=== PATIENT | male | born 1990 | race Caucasian/White ===

== ENCOUNTER 2025-04-03 09:51 | Emergency (ER) | payer OTHER, MEDICAID, SELFPAY ==
[2025-04-03 09:56] VITALS: BP 139/83; PULSE 60; RESP 18; TEMP 36.4; O2SAT 97
--- NOTE | 2025-04-03 10:04 | PC.NURSE ---
Patient eating and drinking in the waiting room.
--- OUTSIDE RECORDS SUMMARY | 2025-04-03 10:43 | XMS_ITS | Continuity of Care Document ---
Author Name Matt Pandey Address [address] [place], [place] [id number] [place] [address] Organization Unknown Address [address] [place], [place] [id number] [place] [address] Medications No known medications Problems No known problems
--- OUTSIDE RECORDS SUMMARY | 2025-04-03 10:43 | XMS_ITS | Continuity of Care Document ---
Author Name Matt Pandey Address [address] [facility] [address] [place] [address] Organization Unknown Address [address] [place] [address] [address] [place] [address] Medications No known medications Problems No known problems
--- OUTSIDE RECORDS SUMMARY | 2025-04-03 10:43 | XMS_ITS | Encounter Summary ---
Author Organization [facility] Healthcare Address [address] [place] [address] Care Team Providers Care Drug Safety Specialist Name Role Phone No, Physician Primary Care Provider [phone] Encounter Details Date Type Department Care Team ([facility] st Contact Info) Description 04/03/2025 Results Follow-Up [facility] Emergency Department 1 [place] [address] Brian Manrique MD [address] [place] [address] Aerobic culture and gram stain Abscess Arm, right Social History Tobacco Use Types Packs/Day Years Used Date Smoking Tobacco: Every Day Cigarettes 0.5 5 Smokeless Tobacco: Never Alcohol Use Standard Drinks/Week Comments Yes 0 (1 standard drink = 0.6 oz pur e alcohol) Personal Safety Answer Date Recorded Have you ever been in or are you currently in a harmful physical or emotional relationship or is someone making you feel afraid or unsafe? 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
--- OUTSIDE RECORDS SUMMARY | 2025-04-03 10:43 | XMS_ITS | Clinical Summary ---
Author Organization [facility] Address [address] [place] [address] Care Team Providers Care Bridge Operator Name Role Phone No, Physician Primary Care Provider [phone] Allergies Active Allergy Reactions Criticality Noted Date Comments Penicillins Medications levETIRAcetam (KEPPRA) 500 mg tablet Take 1 tablet (500 mg total) by mouth 2 (two) times a day. 60 tablet 07/21/19 18 Active EPINEPHrine (EpiPen) 0.3 mg/0.3 mL auto-injection syringeIndicat ions:Anaphylax is Inject 0.3 mL (0.3 mg total) into the muscle as instructed as needed for anaphylaxis 1 each 02/14/20 22 Active mupirocin (BACTROBAN) 2 % ointment Apply topically 3 (three) times a day 22 g 05/16/20 22 Active meclizine (ANTIVERT) 25 mg tabletIndicati ons:Labyrinthi tis of both ears Take 1 tablet (25 mg total) by mouth 3 (three) times a day as needed for dizziness Collaborating physician Caden Mcnamara MD 30 tablet 07/28/19 24 Active methocarbamoL (ROBAXIN) 500 mg tablet Take 1 tablet (500 mg total) by mouth 2 (two) times a day 20 tablet 01/13/20 24 Active lidocaine (LIDODERM) 5 % Place 1 patch on the skin daily for 14 days Remove & discard patch within 12 hours or as directed by . 14 patch 01/13/20 24 Active HYDROcodone-ac etaminophen (NORCO) 5-325 mg per tabletIndicati ons:Pain Take 1 tablet by mouth every 6 (six) hours as needed for pain 10 tablet 10/26/20 25 Active sulfamethoxazo le-trimethopri m (BACTRIM) 800-160 mg per tablet Take 2 tablets (320 mg of trimethoprim total) by mouth 2 (two) times a day for 7 days 28 tablet 03/30/20 25 Active ketorolac (TORADOL) 10 mg tablet Take 1 tablet (10 mg total) by mouth every 6 (six) hours as needed for pain 20 tablet 03/30/20 25 Active naproxen (NAPROSYN) 500 mg tablet Take 1 tablet (500 mg total) by mouth 2 (two) times a day with meals 30 tablet 01/13/20 24 025 Discontin ued(Thera py completed ) HYDROcodone-ac etaminophen (NORCO) 5-325 mg per tabletIndicati ons:Pain Take 1 tablet by mouth every 8 (eight) hours as needed for pain for up to 20 doses 8 tablet 01/13/20 24 025 Discontin ued(Thera py completed ) Active Problems Problem Noted Date Diagnosed Date Labyrinthitis of both ears 07/28/2023 Dentalgia 07/28/2023 Dental caries 07/28/2023 Encounters Date Type Department Care Team Description 04/03/2025 Results Follow-Up [facility] Emergency Department [address] [place] [address] Brian Manrique MD Aerobic culture and gram stain Abscess Arm, right 03/30/2025 1:56 AM CDT - 03/30/2025 2:26 AM CDT Emergency [facility] Emergency Department [address] [place] [address] Alma Matta MD Abscess (Primary Dx); Traumatic bursitis; Folliculitis Discharge Disposition: Discharge to home or self care from Last 3 Months Immunizations Immunization Administration Dates Next Due Tdap 03/30/2025 Surgical History Surgery Date Site/Laterality Comments LEG SURGERY Medical History Medical History Date Comments Adhd Drug abuse Alcohol abuse Social History Tobacco Use Types Packs/Day Years Used Date Smoking Tobacco: Every Day Cigarettes 0.5 5 Smokeless Tobacco: Never Tobacco Cessation:Ready to Q uit: Not Asked; Counseling Given: Not Answered Alcohol Use Standard Drinks/Week Comments Yes 0 [...] on file 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 Gender Identity Not on file Sexual Orientation Not on file Obstetrics History Last Filed Vital Signs Vital Sign Reading Time Taken Comments Blood Pressure 137/88 03/30/2025 1:00 AM CDT Pulse 98 03/30/2025 1:00 AM CDT Temperature 37.1 C (98.8 F) 03/30/2025 1:00 AM CDT Respiratory Rate 18 03/30/2025 1:00 AM CDT Oxygen Saturation 99% 03/30/2025 1:00 AM CDT Inhaled Oxygen Concentration - - Weight 81.6 kg (180 lb) 03/30/2025 1:00 AM CDT Height 180.3 cm (5' 11) 06/25/2023 9:34 AM 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 Body Mass Index 25.1 06/25/2023 9:34 AM 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 Plan of Treatment Health Maintenance Due Date Last Done Comments Depression Screening 1988 Hepatitis C Screening 1988 Varicella Vaccines (1 of 2 - 13+ 2-dose series) 2001 Regular Well Visit/Exam 18-64 2006 Pneumococcal vaccine <65 (1 of 2 - PCV) 10/31/2007 HPV Vaccines (1 - 3-dose SCD M series) 10/31/2015 Influenza Vaccine (#1) 2025 DTaP/Tdap/Td Vaccine (7 - Td or Tdap) 03/30/2035 03/30/2025, 03/03/2023, 12/27/2020, Additional history exists Hepatitis B Screening Completed 09/20/2000 , 04/18/2000, 02/25/2000 Procedures Procedure Name Priority Date/Time Associated Diagnosis Comments NV INCISION & DRAINAGE ABSCESS COMPLICATED/MULTIPL E Routine 03/30/2025 2:29 AM CDT NV INCISION & DRAINAGE ABSCESS COMPLICATED/MULTIPL E Routine 03/30/2025 2:24 AM CDT AEROBIC CULTURE AND GRAM STAIN Routine 03/30/2025 2:17 AM CDT POCT GLUCOSE DEVICE Routine 03/30/2025 2 :05 AM CDT from Last 3 Months Results * NV INCISION & DRAINAGE ABSCESS COMPLICATED/MULTIPLE (03/30/2025 2:29 AM CDT) Narrative Alma Matta MD - 03/30/2025 2:29 AM CDT Alma Matta MD 03/30/2025 3:24 AM Incision and Drainage Date/Time: 03/30/2025 2:29 AM Performed by: Alma Matta MD Authorized by: Alma Matta MD RN Notified of Procedure: yes Informed consent: Risks, benefits, alternatives discussed and 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 Imaging: N/a Lab/Diag test results: Pertinent lab/diag tests reviewed and match to patient identifiers Supplies, devices and special equipment are available: yes Site/side marked: yes Immediately prior to the procedure a time out was called: a verbal verification by the procedure participants confirmed correct patient identity, correct site/side marked and visible (if applicable); agreement on procedure to be done; and correct patient positioning Type: Abscess Size: 4 cm Location: Lower extremity Lower extremity location: R leg Skin preparation: Betadine Anesthesia method: None Needle aspiration: no Techniques: pressure applied. Drainage: Purulent Drainage amount: Scant Wound treatment: Wound left open Packing materials: None Patient tolerance of procedure: Tolerated well, no immediate complications All guidewires, needles, sponges or other items are accounted for: yes Any special post procedure monitoring, testing or other considerations: n/a All specimens identified, labeled and matched to patient identification: n/a Responsible constitution party for transporting specimen(s) to lab determined: n/a Alma Matta MD IN CLINIC/BEDSIDE ORDERABLES Fin al Result * NV INCISION & DRAINAGE ABSCESS COMPLICATED/MULTIPLE (03/30/2025 2:24 AM CDT) Narrative Alma Matta MD - 03/30/2025 2:24 AM CDT Alma Matta MD 03/30/2025 3:24 AM Incision and Drainage Date/Time: 03/30/2025 2:24 AM Performed by: Alma Matta MD Authorized by: Alma Matta MD RN Notified of Procedure: yes Informed consent: Risks, benefits, alternatives discussed and 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 Imaging: N/a Lab/Diag test results: Pertinent lab/diag tests reviewed and match to patient identifiers Supplies, devices and special equipment are available: yes Site/side marked: yes Immediately prior to the procedure a time out was called: a verbal verification by the procedure participants confirmed correct patient identity, correct site/side marked and visible (if applicable); agreement on procedure to be done; and correct patient positioning Type: Abscess Location: Upper extremity Upper extremity location: R arm Skin preparation: Betadine Anesthesia method: Local infiltration Local anesthetic: Bupivacaine 0.5% WITH epi (lidocaine 0.5% WITH epi) Needle aspiration: no Incision types: Stab incision Scalpel blade: 11 Wound management: Probed and deloculated Drainage: Bloody Drainage amount: Moderate Wound treatment: Wound left open Packing materials: None Patient tolerance of procedure: Tolerated well, no immediate complications All guidewires, needles, sponges or other items are accounted for: yes Any special post procedure monitoring, testing or other considerations: n/a All specimens identified, labeled and matched to patient identification: n/a Responsible constitution party for transporting specimen(s) to lab determined: n/a Prior to performing the I&D, patient expressed purulent material on his own. Alma Matta MD IN CLINIC/BEDSIDE ORDERABLES Fin al Result * (ABNORMAL) Aerobic culture and gram stain Abscess Arm, right (03/30/2025 2:17 AM CDT) Direct Specimen Exam Stain: No polymorphonuclear leukocytes seen. No organisms seen. Comment:Testing performed by : [facility], [address] [place] [address], [place]., [address] Report Final Report: Few Staphylococcus aureus Methicillin resistant (MRSA) by penicillin binding protein 2a (PBP2a) testing. (.) KAYLEE HAYES ([place]) Comment:Testing performed by : [facility], [address] [place] [address], [place]., [address] Organism STAPHYLOCOCCUS AUREUS [facility] ([place]) Abscess (Arm, right) 03/30/2025 2:17 AM CDT 03/30/2025 6:00 AM CDT Narrative KAYLEE HAYES ([place]) - 04/02/2025 10:57 AM CDT Testing performed by [facility] ([phone]) Specimens submitted from normally sterile body sites will have all bacterial morphotypes identified. Specimens that contain grossly mixed el and/or are from body sites that are not normally sterile will be examined for Staphylococcus aureus, Pseudomonas aeruginosa, beta-hemolytic strep, vancomycin-resistant Enterococcus and fungus. If any of these are isolated, the organism will be reported. Current interpretive data was last revised on 2016. Organism Antibiotic Method Susceptibility Staphylococcus aureus Vancomycin INTERPRETATION Susceptible Staphylococcus aureus Ceftaroline INTERPRETATION Susceptible Staphylococcus aureus Trimethoprim with Sulfamethoxazole INTERPRETATION Susceptible Staphylococcus aureus Linezolid INTERPRETATION Susceptible Staphylococcus aureus Doxycycline INTERPRETATION Susceptible Staphylococcus aureus Clindamycin INTERPRETATION Susceptible Staphylococcus aureus Erythromycin INTERPRETATION Resistant Staphylococcus aureus Oxacillin INTERPRETATION Resistant Staphylococcus aureus Cefazolin INTERPRETATION Resistant Staphylococcus aureus Ceftriaxone INTERPRETATION Resistant Alma Matta MD LAB MICROBIOLOGY - GENERAL ORDER [place] Final Result KAYLEE HAYES ([place]) 1 [facility] [employer] [place] [address] * POCT glucose (03/30/2025 2:05 AM CDT) [facility] Signature Glucose, POC 108 70 - 199 mg/dL Blood 03/30/2025 2:05 AM CDT 03/30/2025 2:05 AM CDT Alma Matta MD LAB POCT ORDERABLES - DEVICE Fin al Result KAYLEE HAYES ([place]) [address] [facility] [employer] [place] [address] from Last 3 Months Insurance [facility] [id number] [facility] Care Teams Bridge Operator Relationship Specialty Start Date End Date No, Physician PCP - General 07/21/17
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
--- NOTE | 2025-04-03 11:02 | ED_ITS ---
HPI - Skin/Abscess/Foreign Bdy General Chief complaint: Skin/Abscess/Foreign Body Stated complaint: left leg spider bites Time Seen by Provider: 04/03/25 10:42 Source: patient Mode of arrival: ambulatory Limitations: no limitations History of Present Illness HPI narrative: Edwin is a 34-year-old male patient presenting to the emergency room with complaints of right lower leg spider bite. He reports was seen at another hospital 1 week ago for this and was given Bactrim. He still has 2 doses left of the Bactrim but thinks that his leg may be getting worse. He does have purulent discharge coming from the abscess of the right lower leg with localized swelling. He denies any fevers, chills, body aches. Has been taking the antibiotics as prescribed. Related Data Allergies Allergy/AdvReac Type Severity Reaction Status Date / Time Penicillins Allergy Rash Verified 04/03/25 12:06 Review of Systems 2 Review of Systems: Pertinent positives per HPI. Patient denies any fever, chills, rash, headache, visual changes, dizziness, cough, runny nose, sore throat, shortness of breath, chest pain, palpitations, nausea, vomiting, diarrhea, constipation, abdominal pain, or any urinary issues. PMFSH Comments At the time of my signature, I reviewed and agree with the nursing past medical, surgical, social, and family history. There is no relevant family history pertinent to the patient complaint. Exam 2 Narrative: General: Well-developed, well nourished, in no apparent distress Head: Normocephalic, atraumatic. Cardio: Regular rate and rhythm, s1 and s2 normal, no murmur appreciated. Resp: Clear to auscultation bilaterally, no rhonchi, rales, wheezing or rubs. Integumentary: Wickes, warm, and dry, red, indurated abscess measuring 4x4 cm with localized cellulitis to the right lower lateral extremity with blood white exudate draining. Course Course Emergency Course: Portions of this record may have been created with voice recognition software. Vital Signs Vital signs: Vital Signs Temperature 36.4 C 04/03/25 09:56 Pulse Rate 60 04/03/25 09:56 Respiratory Rate 18 04/03/25 09:56 Blood Pressure 139/83 04/03/25 09:56 Pulse Oximetry 97 04/03/25 09:56 Oxygen Delivery Room Air 04/03/25 09:56 Temperature 36.4 C 04/03/25 09:56 Pulse Rate 71 04/03/25 13:12 Respiratory Rate 17 04/03/25 13:12 Blood Pressure 119/71 04/03/25 13:12 Pulse Oximetry 100 04/03/25 13:12 Oxygen Delivery Room Air 04/03/25 09:56 Vital signs reviewed MDM - Skin/Abscess/Foreign Bdy MDM Narrative Medical decision making narrative: At the time of visit patient is resting comfortably on the exam table. Patient appears to be nontoxic. Presenting to the emergency room with complaints of right lower leg spider bite. He reports was seen at another hospital 1 week ago for this and was given Bactrim. He still has 2 doses left of the Bactrim but thinks that his leg may be getting worse. He does have purulent discharge coming from the abscess of the right lower leg with localized swelling. He denies any fevers, chills, body aches. Has been taking the antibiotics as prescribed. On exam patient has a fluctuant 4 x 4 cm abscess to the right lateral leg with active draining-tender to palpation over abscess. Labs, wound culture, saline 1 L, and clindamycin 600 mg IV piggyback ordered Medications: Normal saline 1 L and clindamycin 600 mg IV piggyback given Labs: CBC shows white blood cell count of 4.4, H&H of 12.437.5, chemistry shows sodium of 131, potassium 3.9, chloride of 96, carbon dioxide 27, BUN of 11, creatinine is 1.11, GFR is greater than 60, glucose is 116, AST, ALT is 26 an 18 alk phos is 85. Wound culture pending Plan: Patient has draining abscess to the right lower leg with localized cellulitis. Prescription for clindamycin was sent to the pharmacy. Recommend taking a probiotic as he has just finished up Bactrim. Wound culture was sent to the lab. Supportive measures were discussed with the patient and they voiced understanding discharge instructions and agrees to treatment plan. Return precautions reviewed Differential Diagnosis Differential diagnosis: Likely abscess of skin or subcutaneous tissue, cellulitis, insect bites and impetigo Lab Data 04/03/25 11:30 04/03/25 11:30 Labs: Lab Results 04/03/25 Range/Units 11:30 WBC 4.4 L (4.5-10.0) K/mm3 RBC 4.18 L (4.6-6.20) M/mm3 Hgb 12.4 L (14.0-18.0) g/dL Hct 37.5 L (42.0-52.0) % MCV 89.7 (80-100) fl MCH 29.7 (26-34) pg MCHC 33.1 (32-36) g/dl RDW 13.1 (11.5-14.5) % Plt Count 287 (150-375) k/mm3 MPV 9.0 (7.4-10.4) fl Immature Gran % (Auto) 0.2 (0-0.5) % Neut % (Auto) 37.5 L (45.5-73.1) % Lymph % (Auto) 39.8 (18.3-44.2) % [place] % (Auto) 12.0 H (2.6-8.5) % Eos % (Auto) 9.1 H (0-4.4) % Baso % (Auto) 1.4 H (0.2-1.2) % Lymph # (Auto) 1.75 (0.9-3.2) K/mm3 [place] # (Auto) 0.5 (0.1-0.6) K/mm3 Eos # (Auto) 0.4 H (0-0.3) K/mm3 Baso # (Auto) 0.1 (0.0-0.1) K/mm3 Abs Immat Gran (auto) 0.01 (0.00-0.031) K/mm3 Absolute Neuts (auto) 1.7 (1.3-6.7) K/mm3 Absolute Nucleated RBC 0.000 (0.0-0.012) K/mm3 Nucleated RBC % 0.0 (0.0-0.2) % Sodium 131 L (137-145) mmol/L Potassium 3.9 (3.4-5.0) mmol/L Chloride 96 L (98-107) mmol/L Carbon Dioxide 27 (22-30) mmol/L Anion Gap 8 (4-12) mmol/L BUN 11 (9-20) mg/dL Creatinine 1.11 (0.7-1.3) mg/dL Estim Creat Clear Calc 87 ml/min Estimated GFR > 60 (59 - ) Glucose 116 H (65-110) mg/dL Calcium 8.7 (8.4-10.2) mg/dL Total Bilirubin 0.2 (0.2-1.3) mg/dL AST 26 (17-59) U/L ALT 18 (6-50) U/L Alkaline Phosphatase 85 (38-126) U/L Total Protein 7.4 (6.3-8.2) g/dL Albumin 4.1 (3.5-5.1) g/dL Discharge Plan Discharge Clinical Impression: Cellulitis and abscess of right leg Patient Disposition: Home Condition: Stable Instructions: Antibiotic Form, Cellulitis (ED), Abscess (ED) Additional Instructions: Abscess is actively draining at this time. Clindamycin 600 mg IV piggyback was given in the ER Take clindamycin as prescribed Take daily probiotic 2 hours before 2 hours after taking the antibiotic Wound culture was sent to the lab May take Tylenol/ibuprofen as needed for pain Follow-up with your primary care doctor in 3 days for wound check Patient Language: Telugu Prescriptions: New clindamycin HCl [Cleocin HCl] 300 mg capsule 300 mg PO TID 10 Days Qty: 30 0RF Follow-up/Referrals: PHYSICIAN NOT ON STAFF,NONSTAFF [Primary Care Provider] Time of Disposition: 13:44 Quality NIHSS Nursing Documentation ED NIHSS nursing documentation: reviewed/agree
[2025-04-03 11:38] LABS: Hematocrit 37.5 % (42.0-52.0); Hemoglobin 12.4 g/dL (14.0-18.0); Immature Granulocyte Percent A 0.2 % (0-0.5); Lymphocytes Absolute Auto 1.75 K/mm3 (0.9-3.2); Mean Corpuscular HGB Conc 33.1 g/dl (32-36); Mean Corpuscular Hemoglobin 29.7 pg (26-34); Mean Corpuscular Volume 89.7 fl (80-100); Nucleated Red Blood Cells Absolute Auto 0.000 K/mm3 (0.0-0.012); Nucleated Red Blood Cells Perc 0.0 % (0.0-0.2); Platelet Count Result 287 k/mm3 (150-375); Red Blood Count 4.18 M/mm3 (4.6-6.20); White Blood Count 4.4 K/mm3 (4.5-10.0)
[2025-04-03 11:57] LABS: Alanine Aminotransferase 18 U/L (6-50); Albumin Level 4.1 g/dL (3.5-5.1); Alkaline Phosphatase 85 U/L (38-126); Anion Gap 8 mmol/L (4-12); Aspartate Amino Transferase 26 U/L (17-59); Bilirubin,Total 0.2 mg/dL (0.2-1.3); Blood Urea Nitrogen 11 mg/dL (9-20); Calcium 8.7 mg/dL (8.4-10.2); Carbon Dioxide 27 mmol/L (22-30); Chloride 96 mmol/L (98-107); Estimated CRCL calculation 87 ml/min; Estimated Glomerular Filt Rate > 60; Glucose 116 mg/dL (65-110); Potassium 3.9 mmol/L (3.4-5.0); Sodium 131 mmol/L (137-145); Total Protein 7.4 g/dL (6.3-8.2)
[2025-04-03] MEDS: CLINDAMYCIN 600 MG/D5W 50 ML 600 MG/50 ML PIGGYBACK 100 MG IVPB (12:06)
[2025-04-03] MEDS: SODIUM CHLORIDE 0.9% IV 1,000 ML 999 ML IV CONT (12:30)
--- OUTSIDE RECORDS SUMMARY | 2025-04-03 12:36 | XMS_ITS | Encounter Summary ---
Author Organization [facility] Healthcare Address [address] [place] [address] Care Team Providers Care It Risk And Assurance Manager Name Role Phone No, Physician Primary Care Provider Encounter Details Date Type Department Care Team ([facility] st Contact Info) Description 04/03/2025 Results Follow-Up [facility] Emergency Department [address] [place] [address] Brian Manrique MD [address] [place] [address] Aerobic culture and gram stain Abscess Arm, [...] on file Legal Sex Male 10:01 AM NITRO MAN Gender Identity Not on file Sexual Orientation Not on file documented as of this encounter Plan of Treatment Not on file documented as of this encounter Visit Diagnoses Not on filedocumented in this encounter Care Teams It Risk And Assurance Manager Relationship Specialty Start Date End Date No, Physician PCP - General 07/21/17 documented as of this encounter
--- OUTSIDE RECORDS SUMMARY | 2025-04-03 12:36 | XMS_ITS | Clinical Summary ---
Author Organization [facility] Address [address] [place] [address] Phone Care Team Providers Care Processing Spec Name Role Phone Provider, None Primary Care [...] 01/31/2025 3:32 AM CDT Emergency [facility] Emergency [address] [place] [address] Liu Choudhury MD Olecranon bursitis [...] Brian Marroquin M.D. AR: AR Report ID: [id number] Reading Location: [id number] Procedure Note Brian Marroquin MD - 01/31/2025 [...] Brian Marroquin M.D. AR: AR Report ID: [id number] Reading Location: [id number] IMPRESSION: No fracture or joint effusion identified. Superficial swelling over the elbow. 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
--- OUTSIDE RECORDS SUMMARY | 2025-04-03 12:36 | XMS_ITS | Clinical Summary ---
Author Organization [facility] Address [address] [place] [address] Care Team Providers Care Field Horticultural Specialty Grower Name Role Phone No, Physician Primary Care Provider Allergies Active Allergy Reactions Criticality Noted Date [...] Department Care Team Description 04/03/2025 Results Follow-Up [facility] Emergency Department [address] [place] [address] Brian Manrique MD Aerobic culture and gram stain Abscess Arm, right 03/30/2025 1:56 AM CDT - 03/30/2025 2:26 AM CDT Emergency [facility] Emergency Department [address] [place] [address] Alma Matta MD Abscess (Primary Dx); Traumatic [...] on file 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 Gender Identity Not on file Sexual Orientation [...] 180.3 cm (5' 11) 06/25/2023 9:34 AM SALT LIFTER Body Mass Index 25.1 06/25/2023 9:34 AM SALT LIFTER Plan of Treatment Health Maintenance Due Date [...] Informed consent: Risks, benefits, alternatives discussed and patient/area representative/guardian agrees and accepts Patient's stated name/ matches [...] and matched to patient identification: n/a Responsible green party for transporting specimen(s) to lab determined: [...] Informed consent: Risks, benefits, alternatives discussed and patient/area representative/guardian agrees and accepts Patient's stated name/ matches [...] and matched to patient identification: n/a Responsible green party for transporting specimen(s) to lab determined: n/a Prior to performing the I&D, patient expressed purulent material on his own. Alma Matta MD IN CLINIC/BEDSIDE ORDERABLES Fin al Result * (ABNORMAL) Aerobic culture and gram stain Abscess Arm, right (03/30/2025 2:17 AM CDT) Direct Specimen Exam Stain: No polymorphonuclear leukocytes seen. No organisms seen. Comment:Testing performed by : [facility], [address] [place] [address], [place]., [address] Report Final Report: Few Staphylococcus aureus Methicillin resistant (MRSA) by penicillin binding protein 2a (PBP2a) testing. (.) KAYLEE HAYES (GENESIS) Comment:Testing performed by : [facility], [address] [place] [address], [place]., [address] Organism STAPHYLOCOCCUS AUREUS [facility] (GENESIS) Abscess (Arm, right) 03/30/2025 2:17 AM CDT 03/30/2025 6:00 AM CDT Narrative KAYLEE HAYES (GENESIS) - 04/02/2025 10:57 AM CDT Testing performed by [facility] Microbiology Laboratory ([phone]) Specimens submitted from normally sterile body sites [...] GENERAL ORDER DAVIDSON Final Result KAYLEE HAYES (DUDLEY) 1 [facility] [place] [address] * POCT glucose (03/30/2025 2:05 AM CDT) [facility] Signature Glucose, POC 108 70 - 199 mg/dL Blood 03/30/2025 2:05 AM CDT 03/30/2025 2:05 AM CDT Alma Matta MD LAB POCT ORDERABLES - DEVICE Fin al Result KAYLEE HAYES (DUDLEY) 1 [facility] [place] [address] from Last 3 Months Insurance [facility] [id number] [facility] Care Teams Field Horticultural Specialty Grower Relationship Specialty Start Date End Date No, Physician PCP - General 07/21/17
[2025-04-03 13:12] VITALS: BP 119/71; PULSE 71; RESP 17; O2SAT 100
[2025-04-03 14:09] VITALS: BP 126/79; PULSE 72; RESP 19; O2SAT 100
== END 2025-04-03 14:09 | disposition home or self-care (01) ==
PROVIDERS: Emergency Provider Nurse Practitioner Family
DX: L03.115 Cellulitis of right lower limb (principal); L02.416 Cutaneous abscess of left lower limb
CPT/HCPCS: 36415; 80053; 85025; 87070; 87147; 87186; 87205; 96365; 99284; J7030